=== PATIENT | female | born 1970 | race Two or more races ===

== ENCOUNTER 2017-01-22 02:13 | Emergency (ER) | payer OTHER ==
[~2017-01-22] VITALS: Ht 160 cm; Wt 86.2 kg
[2017-01-22] MEDS ORDERED: IBUPROFEN 800 MG TABLET (02:43)
[2017-01-22] MEDS ORDERED: AMOXICILLIN 500 MG CAPSULE (02:43)
--- NOTE | 2017-01-22 02:51 | NUR ---
Pt ambulated to room with steady gait. Pt c/o right facial swelling upper lip radiating to nose and cheek. As well as severe pain. Pt seen by her dentist, started abt and then given motrin for the pain. Pt resting in position of comfort for self. Family at bedside to translate, awaiting further eval.
[2017-01-22] MEDS ORDERED: ONDANSETRON ODT 4 MG TAB.RAPDIS SL ONE (03:15)
[2017-01-22] MEDS ORDERED: HYDROCODONE/APAP 10-325 MG TABLET PO ONE (03:15)
--- NOTE | 2017-01-22 03:21 | NUR ---
Pt seen by Dr. Barron. Pt medicated for discomfort. Pt stable for discharge per Dr. Barron. Pt and family given ACI. Both verbalized understanding of dc instructions. Pt ambulated out of ER with steady gait and ride home.
[2017-01-22 03:24] VITALS: BP 115/86
[2017-01-22] MEDS ORDERED: ONDANSETRON ODT 4 MG TAB.RAPDIS ONE (03:28)
[2017-01-22] MEDS ORDERED: HYDROCODONE/APAP 10-325 MG TABLET ONE (03:28)
== END 2017-01-22 03:25 | disposition home or self-care (01) ==
LOC: ER 02:21
DX: K08.89 Other specified disorders of teeth and supporting structures (principal)
CPT/HCPCS: 99283; A4663; Q0162